=== PATIENT | male | born 1990 | race Caucasian/White ===

== ENCOUNTER 2016-10-05 11:00 | Emergency (ER) | payer OTHER ==
[~2016-10-05] VITALS: Ht 185.4 cm; Wt 108.3 kg
[~2016-10-05 11:00] MED LIST: LRT5 PO
[2016-10-05 11:04] VITALS: TEMP 36.8; Ht 185.4 cm; Wt 108.3 kg
[2016-10-05 11:31] VITALS: O2SAT 100
[2016-10-05] MEDS ORDERED: SODIUM CHLORIDE 0.9% 1000ML 1,000 ML IV STA (11:59)
[2016-10-05 12:08] LABS: BASO % 0.2 %; BASO ABS # 0.01 K/uL (0-0.2); COMPLETE YES; EOS % 0.3 %; HEMATOCRIT 42.4 % (42-52); IG% 0.2 %; LYMPH ABS # 1.84 K/uL (1.2-3.4); MEAN CELL VOLUME 95.1 fL (80-100); MEAN CORPUSCULAR HEMOGLOBIN 33.4 pg (25-34); MEAN CORPUSCULAR HGB CONC 35.1 g/dl (32-36); MEAN PLATELET VOLUME 9.7 fL (7.4-10.4); NEUT % 61.3 %; PLATELET COUNT 163 K/uL (130-400); RED BLOOD COUNT 4.46 M/uL (4.7-6.1); WHITE BLOOD COUNT 6.14 K/uL (4.8-10.8)
[2016-10-05 12:15] LABS: PROTHROMBIN TIME (PATIENT) 10.6 SECONDS (9.0-12.0)
[2016-10-05 12:24] LABS: ACETAMINOPHEN < 2 ug/ml (10-30)
--- NOTE | 2016-10-05 12:30 | DIAGNOSTIC IMAGING REPORT ---
SINGLE VIEW CHEST CLINICAL HISTORY: Dyspnea. Cocaine use. FINDINGS: An AP, portable, upright chest radiograph is correlated with chest CT dated 01/02/2007. The examination is degraded by portable technique and apical lordotic positioning. The cardiomediastinal silhouette is unremarkable. The lungs and pleural spaces are clear. No pneumothorax is seen. The bony thorax is grossly intact. IMPRESSION: No active disease in the chest. Electronically signed by: Manan Hurst M.D. 10/05/2016 12:28 PM Dictated Date/Time: 10/05/2016 12:27 PM
[2016-10-05 12:35] LABS: ALB/GLOB RATIO 1.1 (0.9-2); CALCIUM 8.9 mg/dl (8.5-10.1); CKMB/CK RATIO 0.4 (0-3.0); CREATININE 1.2 mg/dl (0.60-1.40); MAGNESIUM 1.9 mg/dl (1.8-2.4); POTASSIUM 3.4 mmol/L (3.5-5.1); THYROID STIMULATING HORMONE 3.72 uIu/ml (0.300-4.500)
[2016-10-05 13:50] LABS: URINE APPEARANCE CLEAR (CLEAR); URINE BILIRUBIN NEG (NEG); URINE COLOR YELLOW; URINE NITRITE NEG (NEG); URINE PH 7.5 (4.5-7.5); URINE SPECIFIC GRAVITY 1.009 (1.000-1.030); UROBILINOGEN NEG (NEG); ZZUR CULT IF INDIC CLEAN CATCH NO
[2016-10-05 13:53] LABS: MANUAL MICROSCOPIC REQUIRED? NO; REVIEW REQ? NO
[2016-10-05 14:36] LABS: BENZODIAZEPINE, URINE NEG (NEG); COCAINE,URINE NEG (NEG); PHENCYCLIDINE, URINE NEG (NEG)
--- NOTE | 2016-10-05 15:22 | EMERGENCY ROOM VISIT NOTE ---
History First contact with patient: 11:47 Chief Complaint: CARDIAC ASSESSMENT Stated Complaint: CHEST PAINS, LIGHTHEADED, TINGLING LIGAMENTS Nursing Triage Summary: flew here on sunday from [place]. hx of anxiety but I dont take meds. came here for my brothers [employer] party. went for a walk this morning and on the way back I got tightness in my chest. "I feel like im going to pass out" History of Present Illness The patient is a 25 year old male who presents to the Emergency Room via private vehicle accompanied by brother with complaints of "chest pain, lightheaded, tingling ligaments". The patient states that he recently flew from [place], to participate in his brothers [employer] party. He states that 3 PM yesterday, he began using cocaine, and stop this morning at 7:30 AM. There also has been alcohol use. Patient states he consumes 7 shots and one beer. He did not sleep last night. The patient states that this morning around 10 AM, he tried to go for a walk and notes that he could not breathe. He felt as though he was being strangulated. There is also minimal left anterior chest pain. There was associated shortness of breath and chest pain. He feels as though upon his arrival to the emergency Department his breathing has improved. There is also associated lightheadedness. The patient does smoke tobacco. Patient denies any history of blood clots, fevers, chills, nausea, vomiting. Review of Systems A complete 10-point Review of Systems was discussed with the patient, with pertinent positives and negatives listed in the History of Present Illness. All remaining Review of Systems questions can be considered negative unless otherwise specified. Past Medical/Surgical History No pertinent past medical history Family History Diabetes Social History Smoking Status: Current Every Day Smoker Social History: Patient lives in [place], and is currently employed. He admits to tobacco and alcohol use. Current/Historical Medications No Active Prescriptions or Reported Meds Allergies Coded Allergies: No Known Allergies (Unverified , 01/02/07) Physical Exam Vital Signs Date Time Temp Pulse Resp B/P (MAP) Pulse Ox O2 Delivery O2 Flow Rate FiO2 10/05/16 15:29 74 18 146/78 99 Room Air 10/05/16 14:54 76 18 147/70 98 Room Air 10/05/16 14:25 79 16 144/77 10/05/16 13:28 92 10/05/16 12:48 106 14 135/92 98 Room Air 10/05/16 11:31 87 22 138/80 10/05/16 11:31 100 Nasal Cannula 2.0 10/05/16 11:08 100 Room Air 10/05/16 11:04 36.8 117 18 155/84 100 Room Air Physical Exam VITAL SIGNS - Vital signs and nursing notes were reviewed. Patient is afebrile , hypertensive at 155/84, tachycardic at a rate of 170 bpm, and is saturating well on room air at 100%. GENERAL -25-year-old male appearing his stated age who is in no acute distress. Communicates well with provider and answers questions appropriately. SKIN - Without rashes. Integument is unremarkable. HEAD - NC/AT. EYES - PERRL with EOMI bilaterally. Pupils are slightly enlarged. Sclera anicteric. Palpebral conjunctiva pink and moist with no injection noted. EARS - No deformities of external structures noted on gross examination bilaterally. No pain elicited with palpation of the tragus bilaterally. External auditory canals without discharge or otorrhea. Tympanic membranes pearly santos without retraction or bulging. No fluid or purulent material visualized behind the TM. Handle of malleus, umbo, cone of light, pars tensa/ flaccid all easily visualized. NOSE - Midline and without cyanosis. No epistaxis or purulent drainage noted. Septum midline without deviation or septal hematoma noted. MOUTH/OROPHARYNX - Without perioral cyanosis. Buccal mucosa pink and moist and without leukoplakia. Tongue midline with equal elevation of palate bilaterally. No tonsillar hypertrophy, erythema, or exudates noted. Fair dentition noted. Airways patent. NECK - Neck with FROM. Supple to palpation. No lymphadenopathy noted. No nuchal rigidity. LUNGS - Chest wall symmetric without accessory muscle use, intercostals retractions, or central cyanosis. Normal vesicular breath sounds CTA B/L. No wheezes, rales, or rhonchi appreciated. CARDIAC - RRR with S1/S2. No murmur, rubs, or gallops appreciated. ABDOMEN - Abdominal contour without pulsations or visible masses. BS normoactive all four quadrants. No tenderness, palpable masses, hepatosplenomegaly, or ascites noted. EXTREMITIES - No clubbing or peripheral cyanosis. No pretibial edema present. + 5/5 strength noted in UE/LE bilaterally. NEUROLOGIC - Cranial nerves II through XII grossly intact. Sensory intact to light touch throughout. PSYCH - = Pt is very pleasant and interacts well with examiner. Medical Decision & Procedures ER Provider Diagnostic Interpretation: SINGLE VIEW CHEST CLINICAL HISTORY: Dyspnea. Cocaine use. FINDINGS: An AP, portable, upright chest radiograph is correlated with chest CT dated 01/02/2007. The examination is degraded by portable technique and apical lordotic positioning. The cardiomediastinal silhouette is unremarkable. The lungs and pleural spaces are clear. No pneumothorax is seen. The bony thorax is grossly intact. IMPRESSION: No active disease in the chest. Electronically signed by: Manan Hurst M.D. 10/05/2016 12:28 PM Dictated Date/Time: 10/05/2016 12:27 PM Laboratory Results 10/05/16 11:25 Red Blood Count 4.46, Mean Corpuscular Volume 95.1, Mean Corpuscular Hemoglobin 33.4, Mean Corpuscular Hemoglobin Concent 35.1, Mean Platelet Volume 9.7, Neutrophils (%) (Auto) 61.3, Lymphocytes (%) (Auto) 30.0, Monocytes (%) (Auto) 8.0, Eosinophils (%) (Auto) 0.3, Basophils (%) (Auto) 0.2, Neutrophils # (Auto) 3.77, Lymphocytes # (Auto) 1.84, Monocytes # (Auto) 0.49, Eosinophils # (Auto) 0.02, Basophils # (Auto) 0.01 10/05/16 11:25 Test 10/05/16 11:25 10/05/16 12:12 10/05/16 13:24 10/05/16 14:54 White Blood Count 6.14 K/uL (4.8-10.8) Red Blood Count 4.46 M/uL (4.7-6.1) Hemoglobin 14.9 g/dL (14.0-18.0) Hematocrit 42.4 % (42-52) Mean Corpuscular Volume 95.1 fL (80-100) Mean Corpuscular Hemoglobin 33.4 pg (25-34) Mean Corpuscular Hemoglobin Concent 35.1 g/dl (32-36) Platelet Count 163 K/uL (130-400) Mean Platelet Volume 9.7 fL (7.4-10.4) Neutrophils (%) (Auto) 61.3 % Lymphocytes (%) (Auto) 30.0 % Monocytes (%) (Auto) 8.0 % Eosinophils (%) (Auto) 0.3 % Basophils (%) (Auto) 0.2 % Neutrophils # (Auto) 3.77 K/uL (1.4-6.5) Lymphocytes # (Auto) 1.84 K/uL (1.2-3.4) Monocytes # (Auto) 0.49 K/uL (0.11-0.59) Eosinophils # (Auto) 0.02 K/uL (0-0.5) Basophils # (Auto) 0.01 K/uL (0-0.2) RDW Standard Deviation 43.7 fL (36.4-46.3) RDW Coefficient of Variation 12.7 % (11.5-14.5) Immature Granulocyte % (Auto) 0.2 % Immature Granulocyte # (Auto) 0.01 K/uL (0.00-0.02) Prothrombin Time 10.6 SECONDS (9.0-12.0) Prothromb Time International Ratio 1.0 (0.9-1.1) Activated Partial Thromboplast Time 25.1 SECONDS (21.0-31.0) Partial Thromboplastin Ratio 1.0 Anion Gap 11.0 mmol/L (3-11) Est Creatinine Clear Calc Drug Dose 122.5 ml/min Estimated GFR () 97.5 Estimated GFR (Non- 84.1 BUN/Creatinine Ratio 10.0 (10-20) Calcium Level 8.9 mg/dl (8.5-10.1) Magnesium Level 1.9 mg/dl (1.8-2.4) Total Bilirubin 0.9 mg/dl (0.2-1) Aspartate Amino Transf (AST/SGOT) 43 U/L (15-37) Alanine Aminotransferase (ALT/SGPT) 74 U/L (12-78) Alkaline Phosphatase 59 U/L (45-117) Total Creatine Kinase 271 U/L (39-308) Creatine Kinase MB 1.0 ng/ml (0.5-3.6) Creatine Kinase MB Ratio 0.4 (0-3.0) Total Protein 7.8 gm/dl (6.4-8.2) Albumin 4.1 gm/dl (3.4-5.0) Globulin 3.7 gm/dl (2.5-4.0) Albumin/Globulin Ratio 1.1 (0.9-2) Thyroid Stimulating Hormone (TSH) 3.720 uIu/ml (0.300-4.500) Chemistry Specimen Hemolysis Salicylates Level < 1.7 mg/dl (2.8-20) Acetaminophen Level < 2 ug/ml (10-30) Bedside D-Dimer 282 ng/mlFEU (0-450) Urine Color YELLOW Urine Appearance CLEAR (CLEAR) Urine pH 7.5 (4.5-7.5) Urine Specific [place] 1.009 (1.000-1.030) Urine Protein NEG (NEG) Urine Glucose (UA) NEG (NEG) Urine Ketones NEG (NEG) Urine Occult Blood NEG (NEG) Urine Nitrite NEG (NEG) Urine Bilirubin NEG (NEG) Urine Urobilinogen NEG (NEG) Urine Leukocyte Esterase NEG (NEG) Urine Opiates Screen NEG (NEG) Urine Methadone, Qualitative NEG (NEG) Urine Barbiturates NEG (NEG) Urine Phencyclidine (PCP) Level NEG (NEG) Ur Amphetamine/Methamphetamine NEG (NEG) MDMA (Ecstasy) Screen NEG (NEG) Urine Benzodiazepines Screen NEG (NEG) Urine Cocaine Metabolite NEG (NEG) Urine Marijuana (THC) NEG (NEG) Bedside Troponin I 0.000 ng/ml (0-0.045) Medications Administered Medications (Trade) Dose Ordered Sig/[place] Route Start Time Stop Time Status Last Admin Dose Admin Sodium Chloride 1,000 ml @ 999 mls/hr Q1H1M STAT IV 10/05/16 11:59 10/05/16 12:59 DC 10/05/16 11:59 999 MLS/HR Medical Decision Patient was seen and evaluated as above. After getting a thorough history and physical examination IV access was initiated and the above workup was performed. Patient persists to us today status post alcohol and cocaine use. There is associated lightheadedness, chest pain and shortness of breath. Immediate concern is over acute coronary syndrome. EKG reveals normal sinus rhythm, possible left atrial enlargement. No ectopy or ischemic change. No previous EKGs were available. Troponin initially was negative. Repeat troponin was also negative. Chest x-ray unremarkable for acute process. He was hydrated with 1 L of normal saline. CBC reveals no significant leukocytosis or anemia. D-dimer and coagulation studies are unremarkable. Potassium low at 3.4, glucose 108, AST high at 43. Troponin negative 2. TSH unremarkable. Urine negative for acute process. Toxicology negative. Patient was observed for a period of time and his symptoms began to resolve. I suspect he is likely experiencing a combination of etiologies to include sleep deprivation, cocaine usage, alcohol usage among others. I do not suspect ACS at this time. He has no risk factors for ACS and cocaine use and smoking. D- dimer was negative. I believe it is important for him to follow-up in the outpatient setting, but do believe he is stable for discharge home. He was educated upon worrisome symptoms which to return, had questions prior to discharge, and was discharged home in good condition. This case was discussed with the attending physician. In evaluation treatment this patient following differential diagnoses entertained: ACS, PE, drug overdose, costochondritis, endocarditis, pneumonia, among others. Impression Primary Impression: Chest pain Additional Impressions: Shortness of breath Cocaine use Departure Information Dispostion Home / Self-Care Condition GOOD Prescriptions No Active Prescriptions or Reported Meds Referrals No Doctor, Assigned (PCP) Patient Instructions My [facility] Additional Instructions You were seen in the emergency department for chest pain. Please stop the cocaine use. You lab work here does not reveal any emergent findings of which would warrant admission or surgery. It is recommended that you follow-up with your family doctor as soon as possible by calling them after today's visit. Please follow-up regarding your EKG, although it did not show any emergent abnormalities, it did show normal sinus rhythm, rate of 98 bpm with possible left atrial enlargement. Please return to the emergency department with any new/concerning symptoms. Problem Qualifiers
[2016-10-05 15:29] VITALS: BP 146/78; PULSE 74; O2SAT 99
== END 2016-10-05 15:30 | disposition home or self-care (01) ==
LOC: C.EDB 11:02
DX: R07.9 Chest pain, unspecified (principal); R06.02 Shortness of breath; F14.10 Cocaine abuse, uncomplicated; F17.200 Nicotine dependence, unspecified, uncomplicated; Z83.3 Family history of diabetes mellitus